=== PATIENT | female | born 1955 | race Native Hawaiian/Other Pacific Islander ===

== ENCOUNTER 2018-08-25 06:44 | Emergency (ER) | payer BC ==
[~2018-08-25] VITALS: Ht 157.5 cm; Wt 109.8 kg
[2018-08-25 09:37] VITALS: BP 150/72; TEMP 98
== END 2018-08-25 09:37 | disposition home or self-care (01) ==
LOC: ED 06:44
DX: S42.294A Other nondisplaced fracture of upper end of right humerus, initial encounter for closed fracture (principal); W01.0XXA Fall on same level from slipping, tripping and stumbling without subsequent striking against object, initial encounter
CPT/HCPCS: 99282; J1885